=== PATIENT | male | born 1990 | race Caucasian/White ===

== ENCOUNTER 2016-12-29 20:27 | Emergency (ER) | payer OTHER ==
[~2016-12-29] VITALS: Ht 175.2 cm; Wt 72.6 kg
[~2016-12-29 20:27] MED LIST: ANTIBIOTIC; BACTRIM DS 8001 TA1 PO; CATAFLAM50 MG PO; CREAM; DIPROSONE 0.05%15 GM TP; FLEXERIL10 MG PO; FLOMAX0.4 MG PO; HYDROCODONE BIT1 T11 PO; IBU800 MG PO; KEFLEX500 MG PO; LIDODERM 5% PATC1 EA PO; MOTRIN800 MG PO; NKHM; PYRIDIUM200 M1 PO; TRAMADOL HCL50 MG PO; ULTRAM50 MG PO; VOLTAREN50 M1 PO; ZANAFLEX4 M1 PO; ZITHROMAX Z PA250 MG PO; ZYRTEC10 M2 PO
[2016-12-29 20:45] VITALS: BP 132/73
[2016-12-29] MEDS ORDERED: MEDROL DOSEPAK4 MG PO (21:54)
[2016-12-29] MEDS ORDERED: ZITHROMAX250 MG PO (21:54)
== END 2016-12-29 21:58 | disposition home or self-care (01) ==
LOC: ED 20:27
DX: J40 Bronchitis, not specified as acute or chronic (principal); F17.200 Nicotine dependence, unspecified, uncomplicated

== ENCOUNTER 2017-01-20 11:00 | Emergency (ER) | payer OTHER ==
[~2017-01-20] VITALS: Ht 182.8 cm; Wt 72.6 kg
[~2017-01-20 11:00] MED LIST changes: +MEDROL DOSEPAK4 MG PO; +ZITHROMAX250 MG PO
[2017-01-20 11:06] VITALS: BP 134/59
[2017-01-20] MEDS ORDERED: PREDNISONE10 MG PO (14:15)
== END 2017-01-20 14:18 | disposition home or self-care (01) ==
LOC: ED 11:00
DX: M54.16 Radiculopathy, lumbar region (principal); F17.200 Nicotine dependence, unspecified, uncomplicated; Z98.890 Other specified postprocedural states; Z79.899 Other long term (current) drug therapy

== ENCOUNTER 2017-10-26 12:05 | Emergency (ER) | payer SELFPAY ==
[~2017-10-26] VITALS: Ht 185.4 cm; Wt 72.6 kg
[~2017-10-26 12:05] MED LIST changes: +PREDNISONE10 MG PO
[2017-10-26 13:40] VITALS: BP 116/59
[2017-10-26] MEDS ORDERED: NAPROSYN500 MG PO (14:07)
[2017-10-26] MEDS ORDERED: CYCLOBENZAPRINE10 MG PO (14:07)
== END 2017-10-26 14:26 | disposition home or self-care (01) ==
LOC: ED 12:05
DX: M43.6 Torticollis (principal); F17.200 Nicotine dependence, unspecified, uncomplicated; Z98.890 Other specified postprocedural states

== ENCOUNTER 2018-04-03 09:35 | Emergency (ER) | payer SELFPAY ==
[~2018-04-03] VITALS: Ht 185.4 cm; Wt 72.6 kg
[~2018-04-03 09:35] MED LIST changes: +CYCLOBENZAPRINE10 MG PO; +NAPROSYN500 MG PO
[2018-04-03 09:37] VITALS: BP 131/84
[2018-04-03] MEDS ORDERED: AMOXICILLIN875 MG PO (09:52)
[2018-04-03] MEDS ORDERED: Motrin,Rufen800 MG PO (09:52)
== END 2018-04-03 09:56 | disposition home or self-care (01) ==
LOC: ED 09:35
DX: K02.9 Dental caries, unspecified (principal); F17.200 Nicotine dependence, unspecified, uncomplicated; Z98.890 Other specified postprocedural states

== ENCOUNTER 2018-10-21 11:26 | Emergency (ER) | payer SELFPAY ==
[~2018-10-21] VITALS: Ht 185.4 cm; Wt 72.6 kg
[~2018-10-21 11:26] MED LIST changes: +AMOXICILLIN875 MG PO; +Motrin,Rufen800 MG PO
[2018-10-21 11:28] VITALS: BP 145/81
[2018-10-21] MEDS ORDERED: NAPROSYN500 MG PO (11:30)
[2018-10-21] MEDS ORDERED: ZOFRAN4 MG PO (11:30)
[2018-10-21] MEDS ORDERED: Peridex 473 ML473 ML PO (11:30)
[2018-10-21] MEDS ORDERED: PENICILLIN VK500 MG PO (11:30)
== END 2018-10-21 11:47 | disposition home or self-care (01) ==
LOC: ED 11:26
DX: K02.9 Dental caries, unspecified (principal); R03.0 Elevated blood-pressure reading, without diagnosis of hypertension; Z98.890 Other specified postprocedural states; Z79.899 Other long term (current) drug therapy

== ENCOUNTER 2018-12-07 15:26 | Emergency (ER) | payer SELFPAY ==
[~2018-12-07] VITALS: Ht 185.4 cm; Wt 72.6 kg
[~2018-12-07 15:26] MED LIST changes: +PENICILLIN VK500 MG PO; +Peridex 473 ML473 ML PO; +ZOFRAN4 MG PO
[2018-12-07 15:27] VITALS: BP 149/76
[2018-12-07] MEDS ORDERED: AUGMENTIN 875875 MG PO (16:06)
[2018-12-07] MEDS ORDERED: NORCO 5-325 TA1 EACH PO (16:06)
[2018-12-07] MEDS ORDERED: PROAIR HFA8.5 GM INH (16:06)
[2018-12-07] MEDS ORDERED: PROAIR RESPICL90 MCG INH (16:09)
== END 2018-12-07 16:09 | disposition home or self-care (01) ==
LOC: ED 15:26
DX: S02.5XXA Fracture of tooth (traumatic), initial encounter for closed fracture (principal); K04.7 Periapical abscess without sinus; Z98.890 Other specified postprocedural states; Z79.899 Other long term (current) drug therapy; X58.XXXA Exposure to other specified factors, initial encounter; Y93.89 Activity, other specified; Y92.89 Other specified places as the place of occurrence of the external cause; Y99.9 Unspecified external cause status

== ENCOUNTER 2019-12-20 16:41 | Emergency (ER) | payer SELFPAY ==
[~2019-12-20] VITALS: Ht 185.4 cm; Wt 72.6 kg
[~2019-12-20 16:41] MED LIST changes: +AUGMENTIN 875875 MG PO; +NORCO 5-325 TA1 EACH PO; +PROAIR HFA8.5 GM INH; +PROAIR RESPICL90 MCG INH
[2019-12-20 16:51] VITALS: BP 132/70
[2019-12-20] MEDS ORDERED: AMOXICILLIN500 M2 PO (18:09)
[2019-12-20] MEDS ORDERED: ZYRTEC10 M2 PO (18:09)
[2019-12-20] MEDS ORDERED: FLONASE ALLERG9.9 ML NAS (18:09)
== END 2019-12-20 18:11 | disposition home or self-care (01) ==
LOC: ED 16:41
DX: J32.9 Chronic sinusitis, unspecified (principal); R53.1 Weakness; G43.909 Migraine, unspecified, not intractable, without status migrainosus; Z79.899 Other long term (current) drug therapy

== ENCOUNTER 2020-03-03 23:12 | Emergency (ER) | payer SELFPAY ==
[~2020-03-03] VITALS: Ht 185.4 cm; Wt 59.0 kg
[~2020-03-03 23:12] MED LIST changes: +AMOXICILLIN500 M2 PO; +FLONASE ALLERG9.9 ML NAS
[2020-03-03 23:22] VITALS: BP 128/69
[2020-03-04] MEDS ORDERED: PREDNISONE20 M1 PO (00:04)
== END 2020-03-04 01:31 | disposition home or self-care (01) ==
LOC: ED 23:12
DX: L23.7 Allergic contact dermatitis due to plants, except food (principal)

== ENCOUNTER 2022-03-03 15:03 | Emergency (ER) | payer SELFPAY ==
[~2022-03-03] VITALS: Wt 72.6 kg
[~2022-03-03 15:03] MED LIST changes: +PREDNISONE20 M1 PO
[2022-03-03 15:16] VITALS: BP 116/66
[2022-03-03] MEDS ORDERED: NAPROXEN250 MG PO ×2 (15:55)
[2022-03-03] MEDS ORDERED: CEPHALEXIN500 M1 PO ×2 (15:55)
[2022-03-03] MEDS ORDERED: TYLENOL325 M1 PO ×2 (15:55)
== END 2022-03-03 16:26 | disposition home or self-care (01) ==
LOC: ED 15:03
DX: L72.3 Sebaceous cyst (principal)

== ENCOUNTER 2023-01-26 03:57 | Emergency (ER) | payer OTHER ==
[~2023-01-26] VITALS: Ht 187.9 cm; Wt 77.1 kg
[~2023-01-26 03:57] MED LIST changes: +CEPHALEXIN500 M1 PO; +NAPROXEN250 MG PO; +TYLENOL325 M1 PO
[2023-01-26 05:25] VITALS: BP 132/76
== END 2023-01-26 05:59 | disposition short-term general hospital (02) ==
LOC: ED 03:57
DX: S68.123A Partial traumatic metacarpophalangeal amputation of left middle finger, initial encounter (principal); S68.125A Partial traumatic metacarpophalangeal amputation of left ring finger, initial encounter; S68.127A Partial traumatic metacarpophalangeal amputation of left little finger, initial encounter; W31.89XA Contact with other specified machinery, initial encounter; Y93.89 Activity, other specified; Y92.89 Other specified places as the place of occurrence of the external cause; Y99.8 Other external cause status

== ENCOUNTER 2023-04-06 21:22 | Emergency (ER) | payer SELFPAY ==
[~2023-04-06] VITALS: Ht 182.8 cm; Wt 70.3 kg
[2023-04-06 21:35] VITALS: BP 138/77
[2023-04-06] MEDS ORDERED: PREDNISONE20 M1 PO (22:02)
== END 2023-04-06 22:07 | disposition home or self-care (01) ==
LOC: ED 21:22
DX: L25.9 Unspecified contact dermatitis, unspecified cause (principal); G43.909 Migraine, unspecified, not intractable, without status migrainosus; Z98.890 Other specified postprocedural states; Z87.891 Personal history of nicotine dependence; F90.9 Attention-deficit hyperactivity disorder, unspecified type; Z87.442 Personal history of urinary calculi

== ENCOUNTER 2023-08-21 11:39 | Emergency (ER) | payer SELFPAY ==
[~2023-08-21] VITALS: Ht 185.4 cm; Wt 68.0 kg
[2023-08-21 13:12] VITALS: BP 116/72
== END 2023-08-21 17:56 | disposition left against medical advice (07) ==
LOC: ED 11:39
DX: R22.1 Localized swelling, mass and lump, neck (principal); R22.0 Localized swelling, mass and lump, head; Z53.21 Procedure and treatment not carried out due to patient leaving prior to being seen by health care provider

== ENCOUNTER 2024-08-10 13:18 | Emergency (ER) | payer SELFPAY ==
[~2024-08-10] VITALS: Ht 185.4 cm; Wt 68.0 kg
[2024-08-10 13:51] VITALS: BP 128/77
[2024-08-10] MEDS ORDERED: AMOX-CLAV 875-1 EACH PO (14:07)
== END 2024-08-10 14:29 | disposition home or self-care (01) ==
LOC: ED 13:18
DX: J01.90 Acute sinusitis, unspecified (principal); H92.03 Otalgia, bilateral; F90.9 Attention-deficit hyperactivity disorder, unspecified type; G43.909 Migraine, unspecified, not intractable, without status migrainosus; Z87.442 Personal history of urinary calculi; Z98.890 Other specified postprocedural states

== ENCOUNTER 2024-10-16 12:01 | Emergency (ER) | payer SELFPAY ==
[~2024-10-16] VITALS: Ht 185.4 cm; Wt 68.0 kg
[~2024-10-16 12:01] MED LIST changes: +AMOX-CLAV 875-1 EACH PO
[2024-10-16 12:20] VITALS: BP 131/71
[2024-10-16] MEDS ORDERED: CEPHALEXIN500 M1 PO (12:39)
[2024-10-16] MEDS ORDERED: VIBRAMYCIN100 MG PO (12:39)
== END 2024-10-16 12:45 | disposition home or self-care (01) ==
LOC: ED 12:01
DX: L03.012 Cellulitis of left finger (principal); F90.9 Attention-deficit hyperactivity disorder, unspecified type; G43.909 Migraine, unspecified, not intractable, without status migrainosus; Z87.442 Personal history of urinary calculi; Z98.890 Other specified postprocedural states

== ENCOUNTER 2025-04-26 07:14 | Emergency (ER) | payer SELFPAY ==
[~2025-04-26] VITALS: Ht 185.4 cm; Wt 72.6 kg
[~2025-04-26 07:14] MED LIST changes: +VIBRAMYCIN100 MG PO
[2025-04-26 07:19] VITALS: BP 121/68
[2025-04-26] MEDS ORDERED: DOCUSATE SODIUM 100 MG/10 ML UDC OT ONE (07:35)
[2025-04-26] MEDS ORDERED: AMOX-CLAV 875-1 EACH PO (08:08)
[2025-04-26] MEDS ORDERED: CIPROFLOX-DEXA7.5 ML OT (08:08)
== END 2025-04-26 08:18 | disposition home or self-care (01) ==
LOC: ED 07:14
DX: H60.92 Unspecified otitis externa, left ear (principal); H61.23 Impacted cerumen, bilateral; R51.9 Headache, unspecified; H66.92 Otitis media, unspecified, left ear; Z98.890 Other specified postprocedural states